=== PATIENT | male | born 1945 | race African-American/Black ===

== ENCOUNTER 2017-07-05 14:43 | Emergency (ER) | payer MEDICARE, MEDICAID ==
[2017-07-05] MEDS ORDERED: predniSONE 20 MG TAB ONE (15:03)
[2017-07-05] MEDS ORDERED: Colchicine 0.6 MG TAB PO SCH (15:15)
== END 2017-07-05 15:55 | disposition home or self-care (01) ==
LOC: ERS 14:43
DX: M10.9 Gout, unspecified (principal); I10 Essential (primary) hypertension; M19.90 Unspecified osteoarthritis, unspecified site; Z87.891 Personal history of nicotine dependence
CPT/HCPCS: 99283; J7506

== ENCOUNTER 2017-09-21 10:17 | Emergency (ER) | payer MEDICARE, MEDICAID ==
[2017-09-21] MEDS ORDERED: Colchicine 0.6 MG TAB ONE (12:13)
[2017-09-21] MEDS ORDERED: predniSONE 20 MG TAB ONE (12:13)
== END 2017-09-21 12:31 | disposition home or self-care (01) ==
LOC: ERS 10:17
DX: M10.9 Gout, unspecified (principal); Z87.891 Personal history of nicotine dependence
CPT/HCPCS: 99283; J7506

== ENCOUNTER 2018-03-28 09:29 | Emergency (ER) | payer MEDICAID, MEDICARE | END 2018-03-28 10:45 | disposition home or self-care (01) | LOC: ERS 09:29 | DX: M10.9 Gout, unspecified (principal); M79.89 Other specified soft tissue disorders; Z87.891 Personal history of nicotine dependence; Z79.899 Other long term (current) drug therapy | CPT/HCPCS: 99283 ==

== ENCOUNTER 2018-07-25 10:24 | Emergency (ER) | payer MEDICARE ==
[2018-07-25 11:02] LABS: Bilirubin Small (Negative); Blood, Urine Trace (Negative); Glucose, Urine (Dipstick) Negative (Negative); Leukocyte Negative (Negative); Nitrite Negative (Negative); Protein, Urine (Dipstick) Negative (Neg-Trace); Urobilinogen 0.2 mg/dL (0.2-1.0)
[2018-07-25 11:03] LABS: Clarity CLEAR (Clear); Specific Gravity, Urine 1.029 (1.002-1.036)
[2018-07-25 11:08] LABS: Bacteria/HPF Rare-Few HPF (None Seen); Hyaline Casts/LPF NONE SEEN LPF (0-3 Hyaline); RBC/HPF 0-3 HPF (0-3); Squamous Epithelial 0-3 HPF (0-3); WBC/HPF 0-3 HPF (0-3)
[2018-07-25 11:19] LABS: #Basophils 0.1 thou/uL (0.0-0.2); #Eosinphils 0.1 thou/uL (0.0-0.7); #Lymphocytes 1.6 thou/uL (1.20-3.40); #Monocytes 0.9 thou/uL (0.11-0.59); #Neutrophils 4.6 thou/uL (1.40-6.50); %Basophils 0.9 % (0.0-1.0); %Eosinophils 1.4 % (0.0-10.0); %Lymphocytes 21.7 % (21.0-51.0); %Monocytes 12.2 % (0.0-10.0); %Neutrophils 63.8 % (42.0-75.0); Hemoglobin 14.6 g/dL (14.0-18.0); Mean Corpuscular HGB CONC 32.9 g/dL (32.0-36.0); Mean Corpuscular Volume 97.4 fL (78.0-98.0); Mean Platelet Volume 7.9 fL (7.4-10.4); Platelet Count 179 thou/uL (130-400); RBC Distribution Width 12.3 % (11.5-14.5); Red Blood Cell (RBC) Count 4.58 mill/uL (4.70-6.10); White Blood Cell (WBC) Count 7.3 thou/uL (4.8-10.8)
[2018-07-25 11:45] LABS: ALT (SGPT) 12 U/L (8-55); AST (SGOT) 20 U/L (5-34); Albumin 3.8 g/dL (3.4-4.8); Alkaline Phosphatase 141 U/L (40-150); Anion Gap 13 mmol/L (10-20); BUN (Urea Nitrogen) 17 mg/dL (8.4-25.7); Bilirubin, Total 1.3 mg/dL (0.2-1.2); Calc. Creatinine Clearance 0 mL/min (70-130); Calcium 9.1 mg/dL (7.8-10.44); Carbon Dioxide 24 mmol/L (23-31); Chloride 105 mmol/L (98-107); Estimated GFR-MDRD 67; Glucose 91 mg/dL (83-110); Lipase 17 U/L (8-78); Protein, Total 7.8 g/dL (5.8-8.1); Sodium 138 mmol/L (136-145)
[2018-07-25] MEDS ORDERED: Famotidine 20 MG TAB ONE (12:54)
[2018-07-25] MEDS ORDERED: Lidocaine Viscous Sol 2% 15 ml UD Cup ONE (12:57)
[2018-07-25] MEDS ORDERED: Mag-Al 1200 mg/1200 mg/30 ML UDCUP ONE (12:57)
--- NOTE | 2018-07-25 13:02 | ULT ---
RIGHT UPPER QUADRANT ULTRASOUND: DATE: 07/25/2018. PROVIDED CLINICAL HISTORY: Right upper quadrant pain. FINDINGS: Visualized IVC and pancreas appear normal. The liver demonstrates no mass or intrahepatic biliary du ctal dilatation. The common duct is not dilated. Gallbladder demonstrates 4 mm nonshadowing nonmobi le echogenic focus adherent to the gallbladder wall compatible with polyp. No gallstones, wall thick ening, or pericholecystic fluid evident. The right kidney demonstrates no evidence of hydronephrosis or solid mass. Simple-appearing 2.2 cm inferior pole right renal cyst. IMPRESSION: No evidence for an acute process. POS: JOHN
== END 2018-07-25 13:36 | disposition home or self-care (01) ==
LOC: ERS 10:24
DX: R10.11 Right upper quadrant pain (principal); R10.31 Right lower quadrant pain; M10.9 Gout, unspecified; Z87.891 Personal history of nicotine dependence
CPT/HCPCS: 36415; 76705; 80053; 81003; 81015; 83690; 84484; 85025; 93005

== ENCOUNTER 2018-10-09 11:27 | Emergency (ER) | payer MEDICARE ==
[2018-10-09] MEDS ORDERED: Dexamethasone 4 mg/ml Vial ONE (12:24)
== END 2018-10-09 12:28 | disposition home or self-care (01) ==
LOC: ERS 11:27
DX: M10.9 Gout, unspecified (principal); M19.90 Unspecified osteoarthritis, unspecified site; Z87.891 Personal history of nicotine dependence
CPT/HCPCS: 99283; J1100

== ENCOUNTER 2019-03-12 14:46 | Emergency (ER) | payer MEDICARE ==
--- NOTE | 2019-03-12 15:34 | RAD ---
XR Knee Rt 4 View STANDARD: 03/12/2019 2:55 PM CLINICAL INDICATION: COMPARISON: Radiographs of the right knee dated August 20, 2015 FINDINGS: Bones: No acute fracture or subluxation demonstrated. There are marginal osteophytes affecting all m ajor compartments of the right knee that appear more pronounced than on the prior exam. Joints: There is chondrocalcinosis. The medial femorotibial joint compartmental narrowing is relative ly stable. There is moderate joint capsular distention.. Soft Tissue: . IMPRESSION: Worsening moderate osteoarthrosis of the right knee with chondrocalcinosis and prominent joint capsul ar distention..
[2019-03-12] MEDS ORDERED: HYDROcodone/Acetaminophen 5/325 mg Tablet ONE (15:58)
== END 2019-03-12 16:08 | disposition home or self-care (01) ==
LOC: ERS 14:46
DX: M17.11 Unilateral primary osteoarthritis, right knee (principal); M19.90 Unspecified osteoarthritis, unspecified site; M10.9 Gout, unspecified; Z87.891 Personal history of nicotine dependence; Z79.899 Other long term (current) drug therapy

== ENCOUNTER 2019-07-14 09:26 | Emergency (ER) | payer MEDICARE ==
[2019-07-14 10:07] LABS: Bilirubin Negative (Negative); Blood, Urine Negative (Negative); Clarity Clear (Clear); Glucose, Urine (Dipstick) Normal (Negative); Leukocyte Negative Leu/uL (Negative); Nitrite Negative (Negative); Protein, Urine (Dipstick) Negative (Neg-Trace); Urobilinogen Normal mg/dL (Less than 2)
[2019-07-14 10:09] LABS: #Eosinphils 0.1 thou/uL (0.0-0.7); #Lymphocytes 1.7 thou/uL (1.20-3.40); #Monocytes 0.9 thou/uL (0.11-0.59); %Basophils 0.2 % (0.0-1.0); %Eosinophils 0.7 % (0.0-10.0); %Lymphocytes 19.3 % (21.0-51.0); %Monocytes 10.5 % (0.0-10.0); %Neutrophils 69.3 % (42.0-75.0); Hemoglobin 15.1 g/dL (14.0-18.0); Mean Corpuscular HGB CONC 33.1 g/dL (32.0-36.0); Mean Corpuscular Hemoglobin 33.4 pg (27.0-31.0); Mean Platelet Volume 7.2 fL (7.4-10.4); Platelet Count 285 thou/uL (130-400); RBC Distribution Width 11.2 % (11.5-14.5); Red Blood Cell (RBC) Count 4.52 mill/uL (4.70-6.10); White Blood Cell (WBC) Count 8.6 thou/uL (4.8-10.8)
[2019-07-14 10:40] LABS: ALT (SGPT) 16 U/L (8-55); AST (SGOT) 22 U/L (5-34); Alkaline Phosphatase 131 U/L (40-110); Anion Gap 9 mmol/L (10-20); BUN (Urea Nitrogen) 15 mg/dL (8.4-25.7); Bilirubin, Total 0.7 mg/dL (0.2-1.2); Calc. Creatinine Clearance 0 mL/min (70-130); Calcium 9.4 mg/dL (7.8-10.44); Carbon Dioxide 30 mmol/L (23-31); Chloride 103 mmol/L (98-107); Estimated GFR-MDRD 60; Globulin 4.3 g/dL (2.4-3.5); Glucose 101 mg/dL (83-110); Potassium 3.5 mmol/L (3.5-5.1); Protein, Total 8.3 g/dL (5.8-8.1); Sodium 138 mmol/L (136-145)
== END 2019-07-14 11:26 | disposition home or self-care (01) ==
LOC: ERS 09:26
DX: R33.9 Retention of urine, unspecified (principal); M19.90 Unspecified osteoarthritis, unspecified site; M10.9 Gout, unspecified; Z87.891 Personal history of nicotine dependence; Z79.899 Other long term (current) drug therapy
CPT/HCPCS: 36415; 80053; 81003; 85025; 87086; 99283

== ENCOUNTER 2019-07-17 15:42 | Emergency (ER) | payer MEDICARE | END 2019-07-17 16:42 | disposition home or self-care (01) | LOC: ERS 15:42 | DX: M17.11 Unilateral primary osteoarthritis, right knee (principal); M10.9 Gout, unspecified; Z87.891 Personal history of nicotine dependence; Z79.899 Other long term (current) drug therapy | CPT/HCPCS: 99283 ==